=== PATIENT | female | born 1990 | race Caucasian/White ===

== ENCOUNTER 2016-12-06 09:51 | Emergency (ER) | payer BC ==
[~2016-12-06] VITALS: Ht 157.5 cm; Wt 49.9 kg
--- NOTE | 2016-12-06 09:59 | NUR ---
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 NO ACUTE DISTRESS NOTED. EDP NOTIFIED OF PT ARRIVAL.
[2016-12-06] MEDS ORDERED: TORADOL IM STA (10:17)
--- NOTE | 2016-12-06 10:21 | ER.PDOC ---
General Chief Complaint: Abdomen Pain Stated Complaint: RIGHT SIDE PAIN/SWOLLEN Time seen by MD: 10:20 Source: patient Exam Limitations: no limitations History of Present Illness Initial Comments RUQ abdominal pain for 2 days Severity/Quality: moderate Radiation: no radiation Associated Symptoms: denies symptoms Exacerbated by: nothing Relieved By: nothing Allergies: Coded Allergies: No Known Allergies (Unverified , 12/06/16) Vital Signs First Vital Signs Date Time Temp Pulse Resp B/P (MAP) Pulse Ox O2 Delivery O2 Flow Rate FiO2 12/06/16 10:07 97.6 105 16 99 12/06/16 10:09 152/104 (120) Last Vital Signs Date Time Temp Pulse Resp B/P (MAP) Pulse Ox O2 Delivery O2 Flow Rate FiO2 12/06/16 10:09 97.6 105 16 152/104 (120) 99 Past Medical History Medical History: no pertinent history LMP (females 10-50): 2 months Social History Smoking: less than 1 pack/day Alcohol Use: heavy Drug Use: none Constitutional: no symptoms reported Respiratory: no symptoms reported Cardiovascular: no symptoms reported Gastrointestinal: see HPI All Other Systems: Reviewed and Negative Physical Exam General Appearance: No Apparent Distress, WD/WN Neck: Non-Tender, Full Range of Motion, Supple, Normal Inspection Respiratory: chest non-tender, lungs clear, normal breath sounds, no respiratory distress, no accessory muscle use Cardiovascular: Normal Peripheral Pulses, Regular Rate, Rhythm, No Edema, No Gallop, No JVD, No Murmur Gastrointestinal: Normal Bowel Sounds, No Organomegaly, No Pulsatile Mass, Tenderness (RUQ) Back: Normal Inspection, No CVA Tenderness, No Vertebral Tenderness Extremities: Normal Range of Motion, Non-Tender, Normal Inspection, No Pedal Edema, No Calf Tenderness, Normal Capillary Refill, Pelvis Stable 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
[2016-12-06 10:24] LABS: APPEARANCE,URINE CLEAR (CLEAR); BILIRUBIN,URINE NEGATIVE (NEGATIVE); UA COLOR YELLOW (YELLOW); UROBILINOGEN,URINE NORMAL (NEGATIVE)
[2016-12-06] MEDS ORDERED: TORADOL ONE (10:30)
[2016-12-06] MEDS ORDERED: ZOFRAN ODT ONE ×2 (10:36→10:39)
[2016-12-06] MEDS ORDERED: ZOFRAN ODT SL STA (10:44)
[2016-12-06 10:47] LABS: BASOPHIL % 0.4 % (0.0-0.2); EOSINOPHIL # 0.2 10^3/uL (0.0-0.2); EOSINOPHIL % 2.2 % (0.0-5.0); HEMOGLOBIN 13.5 g/dL (12.0-15.0); LYMPHOCYTES # 1.8 10^3/uL (1.0-4.8); LYMPHOCYTES % 24.6 % (24.0-44.0); MEAN CELL HGB 31.6 pg (26-34); MEAN CELL HGB CONCENTRATION 32.9 g/dL (33-37); MEAN PLATELET VOLUME 11.2 fL (7.8-11.0); MONOCYTES # 0.5 10^3/uL (0.3-0.8); MONOCYTES % 6.6 % (5.0-12.0); NEUTROPHIL # 4.9 10^3/uL (1.8-7.7); NEUTROPHILS % 66.1 % (41.0-85.0); RED CELL DISTRIBUTION WIDTH 13.2 % (11.5-14.5); WHITE BLOOD CELL 7.4 10^3/uL (4.5-11.0)
[2016-12-06 11:03] LABS: CALCIUM 9.3 mg/dL (8.4-10.5)
--- NOTE | 2016-12-06 12:02 | DIREP ---
PROCEDURE:US ABDOMEN LIMITED COMPARISON:None. INDICATIONS:RUQ PAIN X3 DAYS, NAUSEA FINDINGS: PANCREAS:The pancreatic tail is obscured by bowel gas shadowing. LIVER:Normal hepatic parenchymal architecture. GALLBLADDER:Questionable sludge in the gallbladder. Spacecraft Systems Engineer reports positive Dacosta's sign. No shadowing stones seen. No gallbladder wall thickening or pericholecystic fluid. BILIARY:Upper limits of normal 6 mm common bile duct. RIGHT KIDNEY:Right renal length 9.6 cm. No hydronephrosis. OTHER:Negative. No ascites is identified. CONCLUSION: 1. Questionable gallbladder sludge with positive sonographic Dacosta's sign. Finding can be seen with cholecystitis or functional gallbladder disorder. HIDA scan may be helpful to further evaluate. 2. Common bile duct upper limits of normal with no stones seen along visualized segments. 3. Pancreas obscured by bowel gas. Dictated by: Naseem Arnold M.D. on 12/06/2016 at 11:53 AM
[2016-12-06 12:47] VITALS: BP 145/90
== END 2016-12-06 12:40 | disposition home or self-care (01) ==
LOC: ER 09:51
DX: K82.9 Disease of gallbladder, unspecified (principal); F17.200 Nicotine dependence, unspecified, uncomplicated
CPT/HCPCS: 36415; 76705; 80053; 81002; 81025; 83690; 85025; 85610; 86677; 93005; 96372; 99285; J1885; Q0162 ×2